=== PATIENT | male | born 1985 | race Caucasian/White ===

== ENCOUNTER 2020-11-10 19:07 | Inpatient (IN) | payer BC, OTHER ==
[~2020-11-10] VITALS: Ht 182.9 cm; Wt 67.8 kg
--- NOTE | 2020-11-10 19:29 | NUR ---
PT CAME INTO ED TONIGHT AFTER PAIN STARTED IN BACK ON LEFT ABDOMEN HAD A FEW EPISODES OF EMESIS. PT TRAVELLED UP TO CHEST AND PT REPORTS HE BEGAN FEELING SOB. PT IS BREATHING SLIGHT SHALLOW AND RAPIDLY, CAME INTO ED WITH LOWER O2 SATS 88-89%. PT LEGS/FEET ARE SWOLLEN 1-2 PITTING EDEMA, NEW ONSET, SEEN AT YESTERDAY. PROVIDED CLINDAMYCIN AND ANOTHER ABX AND A SHOT OF ROCEPHIN. ANNA MORENO AT BS FOR EVAL AND POC. WCTM. PT PLACED ON SPO2/BP/ECG MONITORING AT THIS TIME.
[2020-11-10] MEDS ORDERED: SODIUM CHLORIDE FLUSH 10ML SYR IVF ONE (20:00)
[2020-11-10] MEDS ORDERED: LIDOCAINE-MPF 1%, 2ML INFIL ONE (20:30)
[2020-11-10] MEDS ORDERED: LIDOCAINE 1%, 2ML INFIL ONE (20:30)
--- NOTE | 2020-11-10 20:30 | NUR ---
late entry d/t pt care: pt o2 sats not maintaining on NC, OxyMask applied over NC pt sats in mid 80s, non rebreather applied pt satting at 87%, RT called, pt placed on optiflow Addendum: 11/10/20 at 2216 by JAQUELIN PT APPEARED DIAPHORETIC, ANXIOUS, RAPID RR. SITTING UP AND TRIPODING FOR EASIER RESPIRATIONS. WCTM.
[2020-11-10 20:40] LABS: BASOPHILS % (AUTO) 1 % (0-1); EOSINOPHILS % (AUTO) 2 % (1-7); LYMPHOCYTES % (AUTO) 15 % (22-44); MEAN CORPUSCULAR HEMOGLOBIN 27.3 pg (27.5-34.5); MEAN CORPUSCULAR HGB CONC 33.8 g/dL (33.2-36.2); MEAN PLATELET VOLUME 7.7 fL (7.4-10.4); MONOCYTES % (AUTO) 7 % (2-9); NEUTROPHILS % (AUTO) 76 % (42-75); PLATELET COUNT 317 x10^3/uL (130-400); RED BLOOD COUNT 4.89 x10^6/uL (4.38-5.82)
[2020-11-10 20:42] LABS: MD NO
[2020-11-10 20:47] LABS: ALBUMIN 3.4 g/dL (3.4-5.0); ANION GAP 5 mmol/L (5-15); CALCIUM 9.2 mg/dL (8.5-10.1); CHLORIDE 103 mmol/L (98-107)
[2020-11-10] MEDS ORDERED: OMNIPAQUE 350 MG/ML, 100ML BOTTLE ONE (20:50)
[2020-11-10 20:54] LABS: ALANINE AMINOTRANSFERASE 63 U/L (12-78); ALKALINE PHOSPHATASE 186 U/L (45-117); BILIRUBIN,TOTAL 0.4 mg/dL (0.2-1.0); CREATININE 0.79 mg/dL (0.7-1.3); TROPONIN I < 0.015 ng/mL (0.000-0.045)
[2020-11-10] MEDS ORDERED: ALBUTEROL SULFATE 2.5 MG/3 ML NPPB ONE (21:00)
[2020-11-10] MEDS ORDERED: ALBUTEROL SULFATE 2.5 MG/3 ML ONE (21:09)
[2020-11-10] MEDS ORDERED: KETOROLAC 30 MG/1 ML ONE (21:25)
[2020-11-10] MEDS ORDERED: KETOROLAC 30 MG/1 ML IVPush ONE (21:30)
[2020-11-10] MEDS ORDERED: LORazepam 2 MG/ML, 1ML ONE (21:43)
--- NOTE | 2020-11-10 21:50 | NUR ---
pt medicated per mar for anxiety, to ct for cta at this time. wctm.
[2020-11-10] MEDS ORDERED: LORazepam 2 MG/ML, 1ML IVPush ONE (22:00)
--- NOTE | 2020-11-10 22:15 | NUR ---
RN UPDATED ON PHONE, PT RESTING ON GURNEY, APPEARS SIGNIFICANTLY MORE COMFORTABLE AND RELAXED, EYES CLOSED, EVEN AND UNLABORED RESPIRATIONS, RR WNL, CALL LIGHT ON LAP, BED IN LOWEST, RAILS UP, WCTM.
--- NOTE | 2020-11-10 22:15 | NUR ---
GUILLERMO (): ALEX ALLISON FOR UPDATES [phone]
--- NOTE | 2020-11-10 23:00 | NUR ---
LATE ENTRY D/T PT CARE: PT NAD, RESTING ON GURNEY ON BACK, EYES CLOSED, APPEARS COMFORTABLE, SKIN P/W/D. EVEN AND UNLABORED RESPIRATIONS, RN SPOKE WITH RT REGARDING ADJUSTING OPTIFLOW TURNED DOWN TO 80%, 40L. WCTM. TO BE ADMITTED
[2020-11-10] MEDS ORDERED: AZITHROMYCIN 500 MG TABLET ONE (23:15)
[2020-11-10] MEDS ORDERED: CEFTRIAXONE PMX 1GM/50ML 50 ML ONE (23:15)
[2020-11-10] MEDS ORDERED: CEFTRIAXONE PMX 1GM/50ML 50 ML IVPB ONE (23:30)
[2020-11-10] MEDS ORDERED: AZITHROMYCIN 500 MG TABLET PO ONE (23:30)
[2020-11-10] MEDS ORDERED: CEFTRIAXONE 1,000 MG IM ONE (23:30)
--- NOTE | 2020-11-11 00:04 | NUR ---
[facility] AT BS FOR EVAL AND POC, HOSPITAL BED ORDERED, PT NAD, RESTING COMFORTABLY, DENIES ADDITIONAL QUESTIONS OR NEEDS, WCTM. WAITING FOR ADMIT BED
[2020-11-11] MEDS ORDERED: SODIUM CHLORIDE FLUSH 10ML SYR IVF PRN (00:30)
[2020-11-11] MEDS ORDERED: SODIUM CHLORIDE 0.9% 1,000 ML IV ONE (00:30)
[2020-11-11] MEDS: ENOXAPARIN 40 MG/0.4 ML SQ SCH (01:00)
[2020-11-11] MEDS ORDERED: GUAIFENESIN/DM 200-20MG, 10ML UDC PO PRN (01:00)
[2020-11-11] MEDS ORDERED: LIDODERM 5% PATCH TD PRN (01:00)
[2020-11-11] MEDS ORDERED: MELATONIN 5 MG TABLET PO PRN (01:00)
[2020-11-11] MEDS ORDERED: DOCUSATE 100 MG CAPSULE PO PRN (01:00)
[2020-11-11] MEDS ORDERED: PHARMACY MAY ADJ FOR RENAL FX MC PRN (01:00)
[2020-11-11] MEDS ORDERED: NICOTINE 14MG/24 HR PATCH.TD24 TD ONE (01:00)
[2020-11-11] MEDS ORDERED: KETOROLAC 30 MG/1 ML IV PRN (01:00)
--- NOTE | 2020-11-11 01:12 | NUR ---
PT MOVED TO HOSPITAL BED FROM [facility], DENIES ADDITIONAL QUESTIONS OR NEEDS AT THSI TIME. WCTM. TO BE ADMITTED.
[2020-11-11] MEDS ORDERED: ENOXAPARIN 40 MG/0.4 ML ONE (01:21)
[2020-11-11] MEDS ORDERED: NICOTINE 14MG/24 HR PATCH.TD24 ONE (01:22)
--- NOTE | 2020-11-11 01:33 | NUR ---
PT AMBULATED TO AND FROM RESTROOM WITH A SMOOTH AND STEADY GAIT, NAD, DENIES ADDITIONAL QUESTIONS OR NEEDS AT THIS TIME. BACK TO HOSPITAL BED, VSS, WCTM. WAITING FOR ADMIT BED
--- NOTE | 2020-11-11 02:11 | NUR ---
PT RESTING ON BACK IN HOSPITAL BED, NAD, APPEARS COMFORTABLE, EYES CLOSEDM, VSS, WCTM. WAITING ON ADMIT BED.
[2020-11-11 04:20] VITALS: BP 148/70
[2020-11-11 04:22] VITALS: BP 148/70
[2020-11-11 04:53] LABS: BASOPHILS % (AUTO) 1 % (0-1); EOSINOPHILS % (AUTO) 1 % (1-7); LYMPHOCYTES % (AUTO) 20 % (22-44); MEAN CORPUSCULAR HEMOGLOBIN 27.2 pg (27.5-34.5); MEAN PLATELET VOLUME 7.3 fL (7.4-10.4); MONOCYTES % (AUTO) 7 % (2-9); NEUTROPHILS % (AUTO) 71 % (42-75); PLATELET COUNT 299 x10^3/uL (130-400); RED BLOOD COUNT 4.73 x10^6/uL (4.38-5.82); RED CELL DISTRIBUTION WIDTH 15.7 % (9.4-14.8)
[2020-11-11 04:54] LABS: HCT (SEDRATE) 38.2 % (39.2-51.8)
[2020-11-11 04:55] LABS: MD NO
[2020-11-11 05:07] LABS: ALANINE AMINOTRANSFERASE 52 U/L (12-78); ALBUMIN 2.9 g/dL (3.4-5.0); ANION GAP 5 mmol/L (5-15); CHLORIDE 107 mmol/L (98-107); CREATININE 0.76 mg/dL (0.7-1.3)
[2020-11-11 05:12] LABS: D-DIMER 2.45 ug/mlFEU (0.00-0.52); INTERNATIONAL NORMALIZED RATIO 1.02 (0.93-1.1); PROTHROMBIN TIME 10.8 Seconds (9.6-11.5)
[2020-11-11 05:14] LABS: ALKALINE PHOSPHATASE 162 U/L (45-117); BILIRUBIN,TOTAL 0.5 mg/dL (0.2-1.0); CREATINE KINASE, TOTAL 400 U/L (39-308); TOTAL PROTEIN 7.3 g/dL (6.4-8.2)
[2020-11-11] MEDS: HYDROcodone/APAP 5/325 TABLET PO PRN ×2 (08:03→16:31)
[2020-11-11 08:18] VITALS: BP 113/63
[2020-11-11] MEDS ORDERED: LORazepam 2 MG/ML, 1ML IVPush PRN (11:30)
[2020-11-11] MEDS ORDERED: CEFTRIAXONE PMX 1GM/50ML 50 ML IV SCH (11:30)
[2020-11-11 15:43] VITALS: BP 121/68
[2020-11-11] MEDS ORDERED: IBUPROFEN 200 MG TABLET PO PRN (16:30)
[2020-11-11] MEDS: METHADONE 10 MG TABLET PO SCH ×2 (18:01→23:55)
[2020-11-11 19:01] LABS: AMPHETAMINE SCREEN, URINE Negative (Negative); BARBITURATE SCREEN, URINE Negative (Negative); BENZODIAZEPINE SCREEN, URINE Negative (Negative); CANNABINOID SCREEN, URINE Positive (Negative); COCAINE SCREEN, URINE Negative (Negative); METHADONE SCREEN, URINE Negative (Negative); OPIATE SCREEN, URINE Positive (Negative)
[2020-11-11 19:45] VITALS: BP 106/62
[2020-11-11] MEDS ORDERED: AZITHROMYCIN 500 MG in SODIUM CHLORIDE 0.9% 250 ML IV SCH (20:00)
[2020-11-11] MEDS: GUAIFENESIN ER 600 MG TABLET PO SCH (20:06)
[2020-11-11] MEDS: DOXYCYCLINE 100MG TABLET PO SCH (20:06)
[2020-11-12 00:32] VITALS: BP 113/65
[2020-11-12] MEDS: ENOXAPARIN 40 MG/0.4 ML SQ SCH (01:00)
[2020-11-12] MEDS: CEFTRIAXONE PMX 2GM/50ML 50 ML IVPB SCH (03:18)
[2020-11-12] MEDS: METHADONE 10 MG TABLET PO SCH ×3 (05:18→17:05)
[2020-11-12 06:03] LABS: BASOPHILS % (AUTO) 0 % (0-1); EOSINOPHILS % (AUTO) 4 % (1-7); LYMPHOCYTES % (AUTO) 21 % (22-44); MEAN CORPUSCULAR HGB CONC 33.9 g/dL (33.2-36.2); MEAN PLATELET VOLUME 7.4 fL (7.4-10.4); MONOCYTES % (AUTO) 9 % (2-9); NEUTROPHILS % (AUTO) 66 % (42-75); PLATELET COUNT 306 x10^3/uL (130-400); RED BLOOD COUNT 4.27 x10^6/uL (4.38-5.82); RED CELL DISTRIBUTION WIDTH 15.5 % (9.4-14.8)
[2020-11-12 06:06] LABS: MD NO
[2020-11-12 06:09] LABS: CHLORIDE 108 mmol/L (98-107)
[2020-11-12 06:22] LABS: ALANINE AMINOTRANSFERASE 47 U/L (12-78); ALBUMIN 2.6 g/dL (3.4-5.0); ALKALINE PHOSPHATASE 141 U/L (45-117); ANION GAP 5 mmol/L (5-15); BILIRUBIN,TOTAL 0.3 mg/dL (0.2-1.0); CALCIUM 8.6 mg/dL (8.5-10.1); CREATINE KINASE, TOTAL 134 U/L (39-308); CREATININE 0.57 mg/dL (0.7-1.3); TOTAL PROTEIN 6.4 g/dL (6.4-8.2)
[2020-11-12 07:39] VITALS: BP 118/71
[2020-11-12] MEDS: DOXYCYCLINE 100MG TABLET PO SCH ×2 (08:44→21:09)
[2020-11-12] MEDS: GUAIFENESIN ER 600 MG TABLET PO SCH ×2 (08:44→21:10)
[2020-11-12 12:24] VITALS: BP 119/72
[2020-11-12] MEDS ORDERED: NICOTINE 21 MG/24 HR PATCH.TD24 TD SCH (14:00)
[2020-11-12] MEDS ORDERED: CEFD300C37 PO (14:20)
[2020-11-12] MEDS ORDERED: DOXY100T PO (14:20)
[2020-11-12 21:10] VITALS: BP 122/72
[2020-11-13] MEDS: METHADONE 10 MG TABLET PO SCH ×3 (00:35→11:14)
[2020-11-13] MEDS: ENOXAPARIN 40 MG/0.4 ML SQ SCH (00:36)
[2020-11-13 01:36] VITALS: BP 115/69
[2020-11-13] MEDS: CEFTRIAXONE PMX 2GM/50ML 50 ML IVPB SCH (06:11)
[2020-11-13 06:54] VITALS: BP 105/63
[2020-11-13 08:44] LABS: BASOPHILS % (AUTO) 1 % (0-1); EOSINOPHILS % (AUTO) 7 % (1-7); LYMPHOCYTES % (AUTO) 23 % (22-44); MEAN CORPUSCULAR HEMOGLOBIN 26.9 pg (27.5-34.5); MEAN CORPUSCULAR HGB CONC 33.6 g/dL (33.2-36.2); MEAN PLATELET VOLUME 6.9 fL (7.4-10.4); MONOCYTES % (AUTO) 7 % (2-9); NEUTROPHILS % (AUTO) 61 % (42-75); PLATELET COUNT 357 x10^3/uL (130-400); RED BLOOD COUNT 4.69 x10^6/uL (4.38-5.82)
[2020-11-13 08:49] LABS: HCT (SEDRATE) 37.5 % (39.2-51.8); MD NO
[2020-11-13 08:55] LABS: ALANINE AMINOTRANSFERASE 49 U/L (12-78); ALBUMIN 2.8 g/dL (3.4-5.0); ANION GAP 6 mmol/L (5-15); CALCIUM 8.8 mg/dL (8.5-10.1); CHLORIDE 104 mmol/L (98-107); CREATININE 0.68 mg/dL (0.7-1.3)
[2020-11-13] MEDS: GUAIFENESIN ER 600 MG TABLET PO SCH (09:01)
[2020-11-13] MEDS: DOXYCYCLINE 100MG TABLET PO SCH (09:01)
[2020-11-13 09:03] LABS: ALKALINE PHOSPHATASE 147 U/L (45-117); BILIRUBIN,TOTAL 0.3 mg/dL (0.2-1.0); CREATINE KINASE, TOTAL 57 U/L (39-308); TOTAL PROTEIN 7.1 g/dL (6.4-8.2)
[2020-11-13 10:20] LABS: D-DIMER 3.83 ug/mlFEU (0.00-0.52); INTERNATIONAL NORMALIZED RATIO 1.04 (0.93-1.1)
[2020-11-13] MEDS ORDERED: ALBU18HF INH (12:04)
[2020-11-13] MEDS ORDERED: GUAI12009 PO (12:04)
[2020-11-13 12:07] VITALS: BP 106/68
== END 2020-11-13 13:27 | disposition home or self-care (01) | DRG 871 ==
LOC: ED 22:29 → EDIP 11-11 00:42 → 4WST 11-11 04:14
PROVIDERS: ADMIT Family Medicine; ATTEND Internal Medicine
PROC: 5A0945A Assistance with Respiratory Ventilation, 24-96 Consecutive Hours, High Flow/Velocity Cannula (ICD-10-PCS; principal; 2020-11-10)
PROC: 5A0945A Assistance with Respiratory Ventilation, 24-96 Consecutive Hours, High Flow/Velocity Cannula (ICD-10-PCS; 2020-11-11)
DX: A41.9 Sepsis, unspecified organism (principal); J18.1 Lobar pneumonia, unspecified organism; J96.01 Acute respiratory failure with hypoxia; E87.2 Acidosis; F11.20 Opioid dependence, uncomplicated; L03.115 Cellulitis of right lower limb; F41.9 Anxiety disorder, unspecified; K21.9 Gastro-esophageal reflux disease without esophagitis; Z20.822 Contact with and (suspected) exposure to COVID-19; Z80.3 Family history of malignant neoplasm of breast; Z80.42 Family history of malignant neoplasm of prostate; Z79.899 Other long term (current) drug therapy
CPT/HCPCS: 36415; 84145; J7613; 71045; 71275; 80053; 80307; 82550; 82728; 83605; 83615; 83690; 83880; 84484; 85025; 85379; 85384; 85610; 85651; 85730; 86140; 87040; 93005; 93306; 93970; G0378; J0696; J1650; J1885; Q9967; J2060; J7030; U0003

== ENCOUNTER 2020-11-20 05:56 | Emergency (ER) | payer OTHER ==
[~2020-11-20] VITALS: Ht 182.9 cm; Wt 68.2 kg
[~2020-11-20 05:56] MED LIST: ALBU18HF INH; CEFD300C37 PO; DOXY100T PO; GUAI12009 PO
[2020-11-20] MEDS ORDERED: SODIUM CHLORIDE FLUSH 10ML SYR IVF ONE (06:30)
[2020-11-20] MEDS ORDERED: SODIUM CHLORIDE 0.9% 1,000ML IVBOLUS ONE (06:30)
[2020-11-20] MEDS ORDERED: KETOROLAC 30 MG/1 ML IVPush ONE (06:30)
[2020-11-20] MEDS ORDERED: KETOROLAC 30 MG/1 ML ONE (06:48)
[2020-11-20] MEDS ORDERED: ONDANSETRON 2MG/ML, 2ML ONE (06:48)
[2020-11-20] MEDS ORDERED: ONDANSETRON 2MG/ML, 2ML IVPush ONE (07:00)
--- NOTE | 2020-11-20 07:00 | NUR ---
report given to Myah LOPEZ
--- NOTE | 2020-11-20 07:24 | NUR ---
patient resting in bed; restless, fidgety, vomiting Q 10-15 minutes, nauseous. IV started and IVF initiated. I requested from Dr. chang some zofran IV d/t active vomiting multiple times. VS remain stable. repeatedly requesting water or ice chips. RN explained that we should hold off on PO fluids/ice chips for now until patient is not actively vomting. patient asking other staff whom enter room for these as well. safety maintained. vomitus bags at bedside. call mon in reach
--- NOTE | 2020-11-20 08:16 | NUR ---
pt give ice chips. states he feels better. vss
[2020-11-20 08:20] LABS: ALANINE AMINOTRANSFERASE 210 U/L (12-78); ALBUMIN 2.7 g/dL (3.4-5.0); ANION GAP 7 mmol/L (5-15); CALCIUM 8.3 mg/dL (8.5-10.1); CHLORIDE 111 mmol/L (98-107); CREATININE 0.92 mg/dL (0.7-1.3)
[2020-11-20 08:25] LABS: ALKALINE PHOSPHATASE 167 U/L (45-117); BILIRUBIN,TOTAL 1.1 mg/dL (0.2-1.0); TOTAL PROTEIN 6.1 g/dL (6.4-8.2); TROPONIN I < 0.015 ng/mL (0.000-0.045)
[2020-11-20 08:40] VITALS: BP 109/61
--- NOTE | 2020-11-20 08:42 | NUR ---
vss. states he is feeling much better. updated on plan of care
[2020-11-20] MEDS ORDERED: POTASSIUM CHLORIDE 20 MEQ PACKET PO ONE (09:00)
[2020-11-20] MEDS ORDERED: POTASSIUM CHLORIDE 20 MEQ PACKET ONE (09:03)
[2020-11-20 09:31] LABS: BASOPHILS % (AUTO) 1 % (0-1); EOSINOPHILS % (AUTO) 1 % (1-7); LYMPHOCYTES % (AUTO) 3 % (22-44); MEAN CORPUSCULAR HEMOGLOBIN 26.5 pg (27.5-34.5); MEAN CORPUSCULAR HGB CONC 33.4 g/dL (33.2-36.2); MEAN PLATELET VOLUME 7.3 fL (7.4-10.4); MONOCYTES % (AUTO) 0 % (2-9); NEUTROPHILS % (AUTO) 96 % (42-75); PLATELET COUNT 275 x10^3/uL (130-400); RED BLOOD COUNT 4.85 x10^6/uL (4.38-5.82); RED CELL DISTRIBUTION WIDTH 15.8 % (9.4-14.8)
[2020-11-20 10:57] LABS: MD SCAN
== END 2020-11-20 10:41 | disposition home or self-care (01) ==
LOC: ED 06:22
DX: J90 Pleural effusion, not elsewhere classified (principal); R07.89 Other chest pain; R74.01 Elevation of levels of liver transaminase levels; R94.5 Abnormal results of liver function studies; R00.0 Tachycardia, unspecified; F17.200 Nicotine dependence, unspecified, uncomplicated; K21.9 Gastro-esophageal reflux disease without esophagitis; G40.909 Epilepsy, unspecified, not intractable, without status epilepticus
CPT/HCPCS: 36415; 71045; 76700; 80053; 84484; 85025; 93005; 96361; 96374; 96375; 99285; J1885; J2405; J7030